=== PATIENT | female | born 1990 | race Caucasian/White ===

== ENCOUNTER → 2017-05-04 12:18 | Outpatient (CLI) | payer OTHER, SELFPAY ==
[2017-05-04 14:07] LABS: Internal QC Validated? YES +Cl - CLEAR BKGD; Pregnancy, Urine Negative Negative
== END ==
PROVIDERS: Visit Provider Dermatology
DX: L70.0 Acne vulgaris (principal); L23.3 Allergic contact dermatitis due to drugs in contact with skin; Z79.899 Other long term (current) drug therapy
CPT/HCPCS: 81025

== ENCOUNTER → 2017-06-03 13:03 | Outpatient (CLI) | payer OTHER, SELFPAY ==
[2017-06-03 14:11] LABS: Internal QC Validated? YES +Cl - CLEAR BKGD; Pregnancy, Urine Negative Negative
== END ==
PROVIDERS: Visit Provider Dermatology
DX: Z79.899 Other long term (current) drug therapy (principal); L23.3 Allergic contact dermatitis due to drugs in contact with skin; L70.0 Acne vulgaris
CPT/HCPCS: 81025

== ENCOUNTER → 2017-07-01 16:28 | Outpatient (CLI) | payer OTHER, SELFPAY ==
[2017-07-01 18:11] LABS: Internal QC Validated? YES +Cl - CLEAR BKGD; Pregnancy, Urine Negative Negative
== END ==
PROVIDERS: Visit Provider Dermatology
DX: Z79.899 Other long term (current) drug therapy (principal)
CPT/HCPCS: 81025

== ENCOUNTER → 2017-07-20 12:33 | Outpatient (CLI) | payer OTHER, SELFPAY ==
[2017-07-20 13:49] LABS: Internal QC Validated? YES +Cl - CLEAR BKGD
[2017-07-20 13:55] LABS: Pregnancy, Urine Negative Negative
== END ==
PROVIDERS: Visit Provider Dermatology
DX: Z79.899 Other long term (current) drug therapy (principal); L70.0 Acne vulgaris; L23.3 Allergic contact dermatitis due to drugs in contact with skin
CPT/HCPCS: 81025

== ENCOUNTER → 2017-08-31 12:39 | Outpatient (CLI) | payer OTHER, SELFPAY ==
[2017-08-31 13:51] LABS: Internal QC Validated? YES +Cl - CLEAR BKGD; Pregnancy, Urine Negative Negative
== END ==
PROVIDERS: Visit Provider Dermatology
DX: Z79.899 Other long term (current) drug therapy (principal); L70.0 Acne vulgaris; L23.3 Allergic contact dermatitis due to drugs in contact with skin
CPT/HCPCS: 81025

== ENCOUNTER → 2017-10-13 13:57 | Outpatient (CLI) | payer OTHER, SELFPAY ==
[2017-10-13 16:20] LABS: Internal QC Validated? YES +Cl - CLEAR BKGD
[2017-10-13 16:21] LABS: Pregnancy, Urine Negative Negative
== END ==
PROVIDERS: Visit Provider Dermatology
DX: Z79.899 Other long term (current) drug therapy (principal); L70.0 Acne vulgaris; L23.3 Allergic contact dermatitis due to drugs in contact with skin
CPT/HCPCS: 81025

== ENCOUNTER → 2017-11-16 16:48 | Outpatient (CLI) | payer OTHER, SELFPAY ==
[2017-11-16 17:47] LABS: Internal QC Validated? YES +Cl - CLEAR BKGD; Pregnancy, Urine Negative Negative
== END ==
PROVIDERS: Visit Provider Dermatology
DX: Z79.899 Other long term (current) drug therapy (principal); L70.0 Acne vulgaris; L23.3 Allergic contact dermatitis due to drugs in contact with skin
CPT/HCPCS: 81025

== ENCOUNTER 2018-09-03 11:36 | Emergency (ER) | payer OTHER, SELFPAY ==
[2018-09-03 11:37] VITALS: BP 164/103; PULSE 83; RESP 16; TEMP 36.6; O2SAT 98; BMI 41.5
--- NOTE | 2018-09-03 12:02 | CT_ITS ---
STUDY: CT BRAIN WITHOUT CONTRAST REASON FOR EXAM: Female, 27 years old. Headache x7 days RADIATION DOSAGE (If Supplied By Facility): CTDIvol = ( 44.99 ) mGy, DLP = ( 762.36 ) mGycm TECHNIQUE: Transaxial CT imaging of the brain was performed without administration of intravenous contrast material. Individualized dose optimization techniques were used for this CT. COMPARISON: No relevant priors. FINDINGS: Normal soft tissue structures. Normal calvarium. Normal size ventricles and extra-axial spaces for the patient's age. Normal white matter tracts of the cerebral hemispheres. Normal basal ganglia and thalami. Normal brainstem. Normal cerebellum. There is no intracranial hemorrhage. There are no findings of an acute ischemic infarction. Normal visualized paranasal sinuses. CT/Brain/Head without Contrast IMPRESSION: Normal unenhanced CT scan of the brain. Electronically Signed: Fer Amezcua DO at 13:14 EDT Tel , Service support ,
--- NOTE | 2018-09-03 12:04 | ED.VISSUMM ---
- ER Visit Summary Date of Service: 09/03/18 Chief Complaint: Headache History of Present Illness: The patient is a 27 F who presents with a headache that has been off and on for the past week. Patient states that her headache is generalized and is worse when she lays down. Patient states nothing else seems to make it better or worse. Patient states the headache last for 2 to 3 hours when it comes on. Patient states that she did have some sharp pain in the right temporal area yesterday and she became concerned with this. Patient also states she has had some pressure in her head but denies any sinus congestion, or sore throat. Patient denies any fevers or chills. Patient denies any nausea or vomiting. Patient admits to some mild photophobia but denies any other visual changes. Patient denies any paresthesias or weakness. Patient states she does have some pain on her neck but states it is more in the paraspinal areas bilaterally. Patient denies any pain with movement of her neck. Physical Examination: Vital signs are stable. Patient is afebrile. Patient is in no acute distress. Pupils are equal, round, reactive to light bilaterally. Extraocular muscles are intact. Funduscopic examination was benign. There is no tenderness over the temporal artery. Oral mucosa is pink and moist. Neck is supple. Trachea is midline. There is no JVD noted. Heart was regular rate and rhythm. Lungs are clear and equal bilaterally. Abdomen is soft and nontender. Cranial nerves II through XII are intact. There are no focal motor or sensory deficits noted. Test Results: CT scan of the brain was obtained. There is an 11 x 7 mm hyperdensity along the tentorium that could represent a small subarachnoid hemorrhage or possible venous thrombosis. Sed rate was obtained and was normal. Emergency Department Course and Treatment: Patient was given IV fluids, Compazine, and Benadryl. Patient felt better on reevaluation. Patient CT scan findings were discussed with her. Patient is agreeable to be transferred to [facility]. Case was discussed with Dr. Vallejo. Patient will be transferred to the neuro ICU for further evaluation. Patient understood and was agreeable with the plan. All questions were answered. Disposition: Transfer to [facility] Impression: Subarachnoid hemorrhage This note was generated with [employer] software. It may contain incorrect words, spelling, and punctuation that were not noted in review of the chart prior to signing ED Disposition - Plan for ED Patient: Disposition: [facility] Diagnosis: Subarachnoid hemorrhage Referrals: Care Physician,No Primary [Primary Care Provider] -
--- NOTE | 2018-09-03 12:08 | ED.DCSUM_ITS ---
- ER Visit Summary Date of Service: 09/03/18 Chief Complaint: Headache History of Present Illness: The patient is a 27 F who presents with a headache that has been off and on for the past week. Patient states that her headache is generalized and is worse when she lays down. Patient states nothing else seems to make it better or worse. Patient states the headache last for 2 to 3 hours when it comes on. Patient states that she did have some sharp pain in the right temporal area yesterday and she became concerned with this. Patient also states she has had some pressure in her head but denies any sinus congestion, or sore throat. Patient denies any fevers or chills. Patient denies any nausea or v omiting. Patient admits to some mild photophobia but denies any other visual changes. Patient denies any paresthesias or weakness. Patient states she does have some pain on her neck but states it is more in the paraspinal areas bilaterally. Patient denies any pain with movement of her neck. Physical Examination: Vital signs are stable. Patient is afebrile. Patient is in no acute distress. Pupils are equal, round, reactive to light bilaterally. Extraocular muscles are intact. Funduscopic examination was benign. There is no tenderness over the temporal artery. Oral mucosa is pink and moist. Neck is supple. Trachea is midline. There is no JVD noted. Heart was regular rate and rhythm. Lungs are clear and equal bilaterally. Abdomen is soft and nontender. Cranial nerves II through XII are intact. There are no focal motor or sensory deficits noted. Test Results: CT scan of the brain was obtained. There is an 11 x 7 mm hyperdensity along the tentorium that could represent a small subarachnoid hemorrhage or possible venous thrombosis. Sed rate was obtained and was normal. Emergency Department Course and Treatment: Patient was given IV fluids, Compazine, and Benadryl. Patient felt better on reevaluation. Patient CT scan findings were discussed with her. Patient is agreeable to be transferred to [facility]. Case was discussed with Dr. Vallejo. Patient will be transferred to the neuro ICU for further evaluation. Patient understood and was agreeable with the plan. All questions were answered. Disposition: Transfer to [facility] Impression: Subarachnoid hemorrhage This note was generated with [employer] software. It may contain incorrect words, spelling, and punctuation that were not noted in review of the chart prior to signing ED Disposition - Plan for ED Patient: Disposition: [facility] Diagnosis: Subarachnoid hemorrhage Referrals: Care Physician,No Primary [Primary Care Provider] -
[2018-09-03] MEDS: proCHLORPERazine 10 MG/2 ML Vial IV (12:22)
[2018-09-03] MEDS: 0.9% Normal Saline 1,000 ML 999 ML IV (12:22)
[2018-09-03] MEDS: DiphenhydrAMINE 50 MG/ML Syringe 25 MG IV (12:22)
[2018-09-03 12:40] LABS: Erythrocyte Sedimentation Rate 3 mm/hr (0-20)
[2018-09-03 13:36] VITALS: RESP 18; O2SAT 98
--- NOTE | 2018-09-03 14:10 | NURSING ---
CALLING [facility] ABOUT TRANSFER
[2018-09-03 14:17] VITALS: BP 146/98; PULSE 90; RESP 18; O2SAT 99
--- NOTE | 2018-09-03 15:36 | NURSING ---
DR HERNANDEZ TALKING TO NEUROSURGEON, DR MAYA
--- NOTE | 2018-09-03 15:44 | NURSING ---
[id number] REPORT [phone]
--- NOTE | 2018-09-03 15:50 | NURSING ---
CALLED [facility] FOR TRANSPORT. ETA IS ABOUT HALF HOUR
[2018-09-03 15:57] VITALS: RESP 18
== END 2018-09-03 17:01 | disposition short-term general hospital (02) ==
PROVIDERS: Emergency Provider Emergency Medicine
DX: I60.9 Nontraumatic subarachnoid hemorrhage, unspecified (principal); E66.9 Obesity, unspecified; Z68.41 Body mass index [BMI] 40.0-44.9, adult
CPT/HCPCS: 70450; 85652; 96361; 96374; 96375; 99284; J7030; A4216

== ENCOUNTER → 2018-09-12 12:52 | Outpatient (CLI) | payer OTHER, SELFPAY ==
[2018-09-03 11:37] VITALS: BMI 41.5
[2018-09-12 13:16] LABS: International Normalized Ratio 2.2; Prothrombin Time (Protime)PT. 24.8 SECONDS (11.7-14.9)
== END ==
PROVIDERS: Referring Provider Family Medicine; Visit Provider Family Medicine
DX: G08 Intracranial and intraspinal phlebitis and thrombophlebitis (principal)
CPT/HCPCS: 85610

== ENCOUNTER 2018-09-13 09:43 | Emergency (ER) | payer OTHER, SELFPAY ==
[2018-09-13 09:43] VITALS: BP 145/94; PULSE 73; RESP 18; TEMP 36.6; O2SAT 98; BMI 40.6
--- NOTE | 2018-09-13 10:08 | CT_ITS ---
STUDY: CT BRAIN WITHOUT CONTRAST REASON FOR EXAM: Female, 27 years old. Headaches. Patient is on Coumadin. RADIATION DOSAGE (If Supplied By Facility): CTDIvol = ( 44.99 ) mGy, DLP = ( 779.24 ) mGycm TECHNIQUE: Transaxial CT imaging of the brain was performed without administration of intravenous contrast material. Individualized dose optimization techniques were used for this CT. COMPARISON: Comparison is made with prior study dated September 03, 2018. FINDINGS: Normal soft tissue structures. Normal calvarium. The previously seen focal area of hyperdensity along the anterior medial aspect of the right cerebellar tentorium, is not seen at this time. Normal size ventricles and extra-axial spaces for the patient's age. Normal white matter tracts of the cerebral hemispheres. Normal basal ganglia and thalami. Normal brainstem. Normal cerebellum. There is no intracranial hemorrhage. There are no findings of an acute ischemic infarction. Normal visualized paranasal sinuses. CT/Brain/Head without Contrast IMPRESSION: Normal unenhanced CT scan of the brain. Electronically Signed: Ayden Pinto, at 10:42 EDT , Service support ,
--- NOTE | 2018-09-13 10:11 | ED.DCSUM_ITS ---
- ER Visit Summary Date of Service: 09/13/18 Chief Complaint: Headache History of Present Illness: The patient is a 27 F who presents with a headache since yesterday. 11 days ago patient was diagnosed with multiple blood clotsin her brain. She was placed on a Lovenox bridge to Coumadin. She stopped her Lovenox injections yesterday and is now only on Coumadin. Patient states her headache today is similar to the headache that brought her in for her initial evaluation 11 days ago. It is not as intense but it is located in the bilateral temporal regions. Patient took Tylenol yesterday with resolution. The headache was present when she woke up again today. She denies any numbness or weakness in the extremities, vision changes, trouble speaking or swallowing, difficulty with gait or balance, or any other complaints other than the headache. She was on oral contraceptives but was discontinued after the diagnosis. She does not smoke tobacco and has not smoked marijuana since the diagnosis as well. Physical Examination: Vital signs: afebrile, hemodynamically stable, no hypoxia on room air General: well nourished, well developed, in no distress Skin: warm, dry, no rash, no pallor HEENT: normocephalic and atraumatic; PERRL, EOMI, moist mucous membranes Cardiovascular: regular rate and rhythm without murmurs, no peripheral edema, 2+ pulses all distal extremities Respiratory: No increased work of breathing, lungs are clear to auscultation bilaterally, no rales, rhonchi or wheezing Abdominal: Abdomen is soft, nontender with normoactive bowel sounds, no guarding or rebound, no masses MSK: Moves all extremities, no deformities, normal strength Neuro: Awake and alert, oriented ?4. No facial droop, sensation very slightly diminished to the right face to light touch and to pain, otherwise sensation and motor function intact and symmetric. NIH equals 1. Test Results: Abnormal Lab Results 09/13/18 09/13/18 09/13/18 10:20 10:20 10:20 WBC 7.5 RBC 5.17 Hgb 15.6 H Hct 45.7 MCV 88.4 MCH 30.2 MCHC 34.1 RDW 12.4 RDW Differential 39.7 Plt Count 257 MPV 9.5 Immature Gran % (Auto) 0.300 Neut % (Auto) 60.0 Lymph % (Auto) 29.0 Early % (Auto) 7.9 Eos % (Auto) 2.1 Baso % (Auto) 0.7 Absolute Neuts (auto) 4.5 Absolute Lymphs (auto) 2.17 Total Counted Not Reportable PT 25.6 H INR 2.3 Sodium 136 Potassium 4.0 Chloride 104 Carbon Dioxide 27.0 Anion Gap 5 BUN 11 Creatinine 0.80 Estim Creat Clear Calc 112.20 Est GFR (MDRD) Af Amer 109 Est GFR (MDRD) Non-Af 90 BUN/Creatinine Ratio 13.8 Glucose 94 Calcium 9.5 Clinical Impression(s) from Imaging Studies Brain CT 09/13/18 10:08 IMPRESSION: Normal unenhanced CT scan of the brain. Electronically Signed: Ayden Pinto, at 10:42 EDT , Service support , Medications Given Discontinued Medications Acetaminophen (Tylenol) 1,000 mg PO X1 ONE Stop: 09/13/18 10:09 Last Admin: 09/13/18 10:23 Dose: 1,000 mg Sodium Chloride () 1,000 mls @ 999 mls/hr IV .Q1H1M ONE Stop: 09/13/18 16:00 Last Admin: 09/13/18 15:11 Dose: 999 mls/hr Emergency Department Course and Treatment: Patient recently was diagnosed with sinus venous thrombosis and is currently on Coumadin. INR was checked and is therapeutic at 2.3. Head CT was performed and showed no sign of intracranial hemorrhage. Patient was given Tylenol for her headache and IV fluids for hydration. On reevaluation her headache had resolved. She was discussed with , the neurologist from [facility] that took care of her, and we discussed the patient's current complaint of the mild headache and her work-up. He stated that headaches are common for patients situation and she did better with hydration while she was at [facility]. Patient was encouraged to continue hydration to prevent dehydration and worsening of her headaches. She is to follow-up outpatient as already planned with neurology. Patient was incredibly anxious during the entire work-up and is analyzing any mild symptoms that she develops as a concern for possible side effect of her venous thrombosis. I discussed with the patient that she might benefit from a discussion with her primary care doctor regarding treatment for her significant anxiety. Patient agreed with this and is going to follow-up with her primary care doctor to discuss further anxiety management. Patient was discharged home very well-appearing and in no distress, neurologically intact. Treatment Plan: [] Disposition: [] Impression: Mild headache, recent diagnosis of sinus venous thrombosis, anticoagulated on Coumadin, severe anxiousness This note was generated with [employer] dictation software. It may contain incorrect words, spelling, and punctuation that were not noted in review of the chart prior to signing ED Disposition - Plan for ED Patient: Disposition: Home or Assisted Living Instructions: ED Cephalgia Unspecified Referrals: Care Physician,No Primary [NON-STAFF] - Talib Portillo MD [Primary Care Provider] - 1 Day Additional Instructions: Please continue your Coumadin as you have been instructed by your doctor. Follow-up with Dr. Portillo and your new neurologist as planned. If you have any worsening of your condition or any new concerning symptoms, please return immediately to the emergency department for another evaluation.
[2018-09-13] MEDS: Acetaminophen 500 MG Tablet 1000 MG PO (10:23)
[2018-09-13 10:27] LABS: Absolute Lymphocyte Count 2.17 X10^3/ul (0.83-4.51); Absolute Neutrophil Count 4.5 X10^3/uL (2.0-7.7); Basophil# 0.05 X10^3/uL; Basophil% 0.7 % (0-1); Eosinophil# 0.16 X10^3/uL; Eosinophils% 2.1 % (0-5); Hematocrit 45.7 % (37-47); Hemoglobin 15.6 g/dl (12.0-15.0); Lymphocyte # 2.17 X10^3/ul (4.0); Mean Corp Hgb Conc 34.1 g/gl (32-36); Mean Corpuscular Hgb 30.2 pg (27.0-32.0); Mean Corpuscular Volume 88.4 fL (81-99); Mean Platelet Vol. 9.5 fl (6.2-12.0); Monocyte# 0.59 X10^3/uL; Monocyte% 7.9 % (0-10); Platelet Count 257 K/mm3 (150-450); RBC Distribution Width CV 12.4 % (11.6-14.6); RBC Distribution Width SD 39.7 fl (35.1-43.9); Red Blood Count 5.17 M/mm3 (4.2-5.4); White Blood Count 7.5 K/mm3 (4.4-11.0)
[2018-09-13 10:28] LABS: POSITIVE COUNT NO; POSITIVE DIFFERENTIAL NO; POSITIVE MORPHOLOGY NO
[2018-09-13 10:37] LABS: Anion Gap 5 (5-15); BUN 11 mg/dL (7-18); BUN/Creat Ratio 13.8 RATIO (10-20); Calcium,Total 9.5 mg/dL (8.5-10.1); Chloride 104 mmol/L (98-107); EST Glomerular Filtration Rate 90 mL/min (>60); Est Glom Filt Rate - Afr Amer 109 mL/min (>60); Glucose 94 mg/dL (74-106); Sodium Level 136 mmol/L (136-145)
[2018-09-13 10:42] LABS: International Normalized Ratio 2.3; Prothrombin Time (Protime)PT. 25.6 SECONDS (11.7-14.9)
--- NOTE | 2018-09-13 11:03 | NURSING ---
CALLING DR CAVAZOS
--- NOTE | 2018-09-13 11:29 | NURSING ---
PAGED DR CAVAZOS THROUGH [employer]
[2018-09-13 12:16] VITALS: BP 154/76; PULSE 86; RESP 13; O2SAT 99
--- NOTE | 2018-09-13 12:51 | NURSING ---
CALLED DR DEMPSEY OFFICE. PAGED VU SURESH [phone]
--- NOTE | 2018-09-13 13:16 | NURSING ---
CALLED [phone], DR MARIA TALKED TO DR RAMIREZ
--- NOTE | 2018-09-13 14:58 | NURSING ---
DR ADI MARIA
[2018-09-13] MEDS: 0.9% Normal Saline 1,000 ML 999 ML IV (15:11)
== END 2018-09-13 16:08 | disposition home or self-care (01) ==
PROVIDERS: Emergency Provider Emergency Medicine; Family Provider Family Medicine; PCP Family Medicine
DX: G08 Intracranial and intraspinal phlebitis and thrombophlebitis (principal); R51 Headache; F41.9 Anxiety disorder, unspecified; Z79.01 Long term (current) use of anticoagulants
CPT/HCPCS: 70450; 80048; 85025; 85610; 96360; 99282; J7030; A4216

== ENCOUNTER → 2018-09-14 12:13 | Outpatient (CLI) | payer OTHER, SELFPAY ==
[2018-09-13 09:43] VITALS: BMI 40.6
[2018-09-14 13:11] LABS: International Normalized Ratio 2.7; Prothrombin Time (Protime)PT. 28.4 SECONDS (11.7-14.9)
== END ==
PROVIDERS: Family Provider Family Medicine; PCP Family Medicine; Referring Provider Family Medicine; Visit Provider Family Medicine
DX: G08 Intracranial and intraspinal phlebitis and thrombophlebitis (principal)
CPT/HCPCS: 85610

== ENCOUNTER → 2018-12-15 12:26 | Outpatient (CLI) | payer OTHER, SELFPAY ==
[2018-12-15 13:17] LABS: International Normalized Ratio 2.8; Prothrombin Time (Protime)PT. 29.2 SECONDS (11.7-14.9)
== END ==
PROVIDERS: Family Provider Family Medicine; PCP Family Medicine; Referring Provider Family Medicine; Visit Provider Family Medicine
DX: G08 Intracranial and intraspinal phlebitis and thrombophlebitis (principal)
CPT/HCPCS: 85610